=== PATIENT | female | born 1960 | race Caucasian/White ===

== ENCOUNTER 2017-03-18 20:10 | Emergency (ER) | payer BC ==
[2017-03-18 20:11] VITALS: BP 120/71; PULSE 58; RESP 16; TEMP 98.8; O2SAT 100
[2017-03-18] MEDS ORDERED: vitamin B PO (21:05)
[2017-03-18] MEDS ORDERED: FISH1000 PO (21:05)
[2017-03-18] MEDS ORDERED: ALPR.5 PO (21:05)
--- NOTE | 2017-03-18 21:28 | PD ---
HPI Chief Complaint: Medication Refill Request Time Seen by Provider: 21:24 Travel History International Travel<30 days: No Contact w/Intl Traveler<30days: No Traveled to known affect area: No History of Present Illness HPI Patient comes in requesting a refill of her Xanax that she takes at night to help her sleep. Patient states she takes 0.5 mg Xanax at night to sleep and forgot her prescription in [place]. Is here dropping her son off at school. Patient states she goes back tomorrow night. She feels she will not be able to sleep. Patient's does not want to try any [id number] sleep aids. Patient denies any medical complaints or concerns at this time. Patient denies any chest pain, shortness of breath, abdominal pain,fevers, or headaches. Patient denies anything making her symptoms better or worse. PFSH Past Medical History Depression: Yes Diminished Hearing: No Insomnia: Yes Tetanus Vaccination: < 5 Years Influenza Vaccination: No ?: Not Menopausal: Yes Social History Alcohol Use: Yes (socially) Tobacco Use: No Substance Use: No Allergies-Medications (Allergen,Severity, Reaction): Coded Allergies: No Known Allergies (Unverified , 03/18/17) Reported Meds & Prescriptions Reported Meds & Active Scripts Active Vistaril (Hydroxyzine Pamoate) 50 Mg Cap 50 Mg PO HS PRN Reported [vitamin B] 1 Tab PO DAILY Fish Oil ([place]-3 Fatty Acids) 1,000 Mg Cap 1 Cap PO DAILY Xanax (Alprazolam) 0.5 Mg Tab 0.5 Mg PO HS PRN Review of Systems Except as stated in HPI: all other systems reviewed are Neg Physical Exam Narrative GENERAL: Well-developed, well nourished, in no acute distress, and non-ill appearing. SKIN: Focused skin assessment warm and dry. HEAD: Atraumatic. Normocephalic. EYES: Pupils equal and round. EOMI. No scleral icterus. No injection or drainage. ENT: No nasal bleeding or discharge. Mucous membranes pink and moist. NECK: Trachea midline. Supple. No nuclear rigidity. RESPIRATORY: No accessory muscle use. No respiratory distress. MUSCULOSKELETAL: No obvious deformities. No clubbing. No cyanosis. No edema. Full range of motion. NEUROLOGICAL: Awake and alert. No obvious cranial nerve deficits. Motor grossly within normal limits. Normal speech. PSYCHIATRIC: Appropriate mood and affect; insight and judgment normal. Data Data Last Documented VS Vital Signs Date Time Temp Pulse Resp B/P Pulse Ox O2 Delivery O2 Flow Rate FiO2 03/18/17 20:11 98.8 58 16 120/71 100 Room Air MDM Medical Decision Making Medical Screen Exam Complete: Yes Emergency Medical Condition: No Differential Diagnosis Medication refill, medical management, anxiety, insomnia, other Narrative Course Patient in no obvious distress upon re-evaluation. Patient was asked if they wanted to speak to my attending, which the patient did not wish to do at this time. Any questions/concerns in reference to patient diagnosis/condition discussed and clarified prior to patient's discharge. Reinforced sheer importance of close follow up with patient's primary physician or primary care clinic. Instructed patient to return to ED immediately, if symptoms return/ worsen. Pt showed understanding of above instructions. Further instructions and recommendations were detailed in discharge paperwork. Pt ambulated without difficulty out of ED at discharge. Diagnosis Primary Impression: Medication management Patient Instructions: General Instructions Additional Instructions: Follow-up with your primary care physician for additional regular medication. Take all medication as prescribed. Return to the emergency department if symptoms get worse. Med/Other Pt SpecificInfo: Prescription(s) given Scripts Hydroxyzine Pamoate (Vistaril)50 Mg Cap50 Mg PO HS PRN (INSOMNIA) #2 CAP Ref 0 Prov:Darren Cottrell MD 03/18/17 Disposition: 01 DISCHARGE HOME Condition: Stable Miller Roque Mar 18, 2017 21:28
[2017-03-18] MEDS ORDERED: VIST50CA PO (21:29)
== END 2017-03-18 21:50 | disposition home or self-care (01) ==
LOC: NEPD 20:10
DX: G47.00 Insomnia, unspecified (principal); Z76.0 Encounter for issue of repeat prescription
CPT/HCPCS: 99283